=== PATIENT | male | born 1990 | race Two or more races ===

== ENCOUNTER 2020-04-14 21:16 | Emergency (ER) | payer SELFPAY ==
[~2020-04-14] VITALS: Ht 180.3 cm; Wt 77.1 kg
--- NOTE | 2020-04-14 21:16 | NUR ---
ED Nurse Note: Pt brought in by EMS 15 by ambulance. Per EMS they found him unresponsive in a parking lot. Pupils are equal and reactive. Pt in moving all four extremities, he has slurred speach and is giving the 'devil horns' sign with his left hand while on the gurney. Vitals are stable on RA, his airway is patent and he is able to protect his airway without assistance. Pt is refusing to wear a mask and has spit at the military technology manager when educated on the importance of wearing a mask in a worldwide pandemic.
--- NOTE | 2020-04-14 21:23 | Emergency Room Report ---
History of Present Illness General Chief Complaint: AMS Source: EMS (Teodoro Palacios MD) Present Illness HPI Disclaimer: Please note that this report is being documented using DRAGON technology. This can lead to erroneous entry secondary to incorrect interpretation by the dictating instrument. HPI: Sohan Leigh approximate 30s presents for evaluation of altered mental status. EMS found him sleeping in someone's parking garage. They were called initially to a patient drinking outside a convenience store going and acting betty gerently. They noted stable vital signs on plan. No respiratory depression. Did not give any medications prior to arrival. Patient arrives with slurred speech and is noncooperative with exam or history. PMH: Unable to obtain from patient PSH: Unable to obtain from patient Allergies: Unable to obtain from patient Social Hx: Unable to obtain from patient (Teodoro Palacios MD) Allergies: Coded Allergies: No Known Allergies (Unverified , 04/14/20) Review of Systems All Other Systems: limited - Unable to obtain from patient due to clinical condition (Teodoro Palacios MD) Physical Exam General: Somnolent, slurred speech, appears intoxicated. No acute distress HEENT: NC/AT. No scalp or facial hematomas, lacerations or abrasions identified. EOMI. pupils 5 mm and reactive bilaterally. Cardiovascular: RRR. S1 and S2 normal. No murmur appreciated Resp: Normal work of breathing. No cough, wheezing or crackles appreciated Abdomen: Abdomen is soft, nondistended. Nontender Skin: Intact. No abrasions, laceration or rash over the exposed skin MSK: Normal tone and bulk. Moving all extremities. No obvious deformity. Neuro: Somnolent, appears intoxicated. Purposeful movements. Somewhat combative. (Teodoro Palacios MD) Medical Decision Making Diagnostic Impression: Primary Impression: Alcohol intoxication ER Course Sohan Leigh presents for altered mental status. Patient is combative spitting on the floor. Alcohol elevated. Positive for THC. Labs otherwise within normal limits. He remained combative through with staff. He is Wallisian-speaking but refusing to engage with our Wallisian-speaking staff. We will continue to metabolize. Discharged once clinically sober Laboratory Tests Test 04/14/20 21:35 04/14/20 21:50 White Blood Count 10.2 K/UL (4.8-10.8) Red Blood Count 5.67 M/UL (4.70-6.10) Hemoglobin 16.7 G/DL (14.2-18.0) Hematocrit 51.2 % (42.0-52.0) Mean Corpuscular Volume 90 FL (80-99) Mean Corpuscular Hemoglobin 29.4 PG (27.0-31.0) Mean Corpuscular Hemoglobin Concent 32.5 G/DL (32.0-36.0) Red Cell Distribution Width 12.8 % (11.6-14.8) Platelet Count 236 K/UL (150-450) Mean Platelet Volume 7.9 FL (6.5-10.1) Neutrophils (%) (Auto) 37.0 % (45.0-75.0) L Lymphocytes (%) (Auto) 46.3 % (20.0-45.0) H Monocytes (%) (Auto) 11.5 % (1.0-10.0) H Eosinophils (%) (Auto) 3.6 % (0.0-3.0) H Basophils (%) (Auto) 1.6 % (0.0-2.0) Sodium Level 150 MMOL/L (136-145) H Potassium Level 3.3 MMOL/L (3.5-5.1) L Chloride Level 111 MMOL/L (98-107) H Carbon Dioxide Level 30 MMOL/L (21-32) Anion Gap 9 mmol/L (5-15) Blood Urea Nitrogen 10 mg/dL (7-18) Creatinine 1.1 MG/DL (0.55-1.30) Estimated Glomerular Filtration Rate > 60 mL/min (>60) Glucose Level 79 MG/DL (74-106) Calcium Level 8.6 MG/DL (8.5-10.1) Salicylates Level 1.7 ug/mL (2.8-20) L Acetaminophen Level < 2 MCG/ML (10-30) L Serum Alcohol 395 mg/dL Urine Opiates Screen Negative (NEGATIVE) Urine Barbiturates Screen Negative (NEGATIVE) Phencyclidine (PCP) Screen Negative (NEGATIVE) Urine Amphetamines Screen Negative (NEGATIVE) Urine Benzodiazepines Screen Negative (NEGATIVE) Urine Cocaine Screen Negative (NEGATIVE) Urine Marijuana (THC) Screen Positive (NEGATIVE) H (Teodoro Palacios MD) ER Course Patient was endorsed to me by Dr. Palacios. Patient was now more awake responsive. He is able to ambulate without assistance. Patient refused to provide his information. Patient subsequently left the hospital. (Declan Diaz MD) Status: improved (Declan Diaz MD) Disposition: HOME, SELF-CARE Condition: Stable Scripts Folic Acid* (FOLIC ACID*) 1 Mg Tablet 1 MG ORAL DAILY for SUPPLEMENT for 30 Days, #30 TAB Prov: Teodoro Palacios MD 04/15/20 Thiamine Hcl* (VITAMIN B-1*) 100 Mg Tablet 100 MG ORAL DAILY, #30 TAB 0 Refills Prov: Teodoro Palacios MD 04/15/20 Teodoro Palacios MD Apr 14, 2020 21:23 Declan Diaz MD Apr 15, 2020 12:41
[2020-04-14 21:45] LABS: BASOPHILS % (AUTO) 1.6 % (0.0-2.0); EOSINOPHILS % (AUTO) 3.6 % (0.0-3.0); HEMATOCRIT 51.2 % (42.0-52.0); HEMOGLOBIN 16.7 G/DL (14.2-18.0); LYMPHOCYTES % (AUTO) 46.3 % (20.0-45.0); MEAN CORPUSCULAR VOLUME 90 FL (80-99); MONOCYTES % (AUTO) 11.5 % (1.0-10.0); PLATELET COUNT 236 K/UL (150-450); RED BLOOD COUNT 5.67 M/UL (4.70-6.10); RED CELL DISTRIBUTION WIDTH 12.8 % (11.6-14.8); WHITE BLOOD COUNT 10.2 K/UL (4.8-10.8)
[2020-04-14 21:55] LABS: ANION GAP 9 mmol/L (5-15); BLOOD UREA NITROGEN 10 mg/dL (7-18); CALCIUM 8.6 MG/DL (8.5-10.1); CARBON DIOXIDE 30 MMOL/L (21-32); CHLORIDE 111 MMOL/L (98-107); CREATININE 1.1 MG/DL (0.55-1.30); POTASSIUM 3.3 MMOL/L (3.5-5.1); SODIUM 150 MMOL/L (136-145)
[2020-04-14 21:59] VITALS: BP 130/79
[2020-04-14 23:13] VITALS: BP 119/69
--- NOTE | 2020-04-14 23:14 | NUR ---
ED Nurse Note: Pt asleep, responds to verbal command. No new needs identified at this time.
[2020-04-15] VITALS (8 sets, daily range): BP systolic 133–157; BP diastolic 75–94
[2020-04-15] MEDS ORDERED: VITAMIN B-1100 MG ORAL (00:58)
[2020-04-15] MEDS ORDERED: FOLIC ACID1 MG ORAL (00:58)
--- NOTE | 2020-04-15 01:25 | NUR ---
ED Nurse Note: Pt verbalized that he speaks Irish. TALHA Lopez translated. Pt advised John of his name, but would not tell his .
--- NOTE | 2020-04-15 03:00 | NUR ---
ED Nurse Note: Pt began vomiting in floor. Gave pt 4mg of zofran. Pt is spitting at staff. Dr. Ritchie ordered 5mg Haldol IM for pt. TALHA Lopez has attempted to speak to pt multiple times, but pt is uncooperative.
[2020-04-15] MEDS ORDERED: Haloperidol 5mg/ml Inj ONE (03:08)
[2020-04-15] MEDS ORDERED: Haloperidol 5mg/ml Inj IM ONE (03:15)
--- NOTE | 2020-04-15 04:46 | NUR ---
ED Nurse Note: Changed pt's bedding and cleaned pt up. Pt continues to spit and yell at staff.
--- NOTE | 2020-04-15 05:52 | NUR ---
ED Nurse Note: Pt is sleeping. Responds to verbal command. No new needs identified at this time.
--- NOTE | 2020-04-15 06:47 | NUR ---
ED Nurse Note: Pt is sleeping. Responds to verbal command. No new needs identified at this time.
--- NOTE | 2020-04-15 11:05 | NUR ---
ED Nurse Note: pt awake in bed. sleeping previously. pt on monitor. refusing to give last name. RN offered food, fluids. pt refused offer. aware.
--- NOTE | 2020-04-15 13:52 | NUR ---
ED Nurse Note: pt awake & alert, ambulatory. pt stable on monitor. pt veralizes understanding of discharge. MD aware. MD cleared pt for discharge.
== END 2020-04-15 13:56 | disposition home or self-care (01) ==
LOC: EDBD 21:16 → EMR 21:33
DX: F10.129 Alcohol abuse with intoxication, unspecified (principal); Y90.8 Blood alcohol level of 240 mg/100 ml or more; F12.90 Cannabis use, unspecified, uncomplicated
CPT/HCPCS: 36415; 80048; 80307; 85025; 96372; 96374; 99284; G0480; J1630; J2405